=== PATIENT | male | born 1965 | race Caucasian/White ===

== ENCOUNTER 2019-05-12 15:52 | Emergency (ER) | payer BC, SELFPAY ==
[2019-05-12 15:55] VITALS: BP 130/81; PULSE 92; RESP 17; TEMP 37.5; O2SAT 94; BMI 32.2
--- NOTE | 2019-05-12 15:59 | XR_ITS ---
WS: [id number] PROCEDURE: XR chest 2V* [id number] CLINICAL INFORMATION: fever COMPARISON: None. FINDINGS: Heart: Normal cardiac silhouette. Lungs: Moderate chronic emphysematous changes. No acute pulmonary infiltrates. Slight fibrosis right upper lobe. Bones: Normal visualized bony structures. XR/XR chest 2V* [id number] IMPRESSION: Moderate chronic emphysematous changes. No acute chest findings.
--- NOTE | 2019-05-12 16:05 | ECG_ITS ---
Measurements Intervals [place] Rate: 86 P: 64 DC: 142 QRS: 42 QRSD: 102 T: 48 QT: 342 QTc: 411 SINUS RHYTHM POSSIBLE LEFT ATRIAL ENLARGEMENT [-0.1mV P WAVE IN V1/V2] No previous ECG available for comparison Electronically Signed On 05-12-2019 17:37:51 CDT by Cheryl Marie M.D. [id number] f
--- NOTE | 2019-05-12 16:06 | W.ED.SOB ---
HPI - SOB/Dyspnea General: Chief Complaint: Shortness of Breath/Dyspnea Stated Complaint: cough,fever Time Seen by Provider: 05/12/19 15:58 Source: patient Mode of arrival: ambulatory Limitations: no limitations History of Present Illness: HPI Narrative: 53-year-old male who states over the last 2 days has had a cough and fever. Patient states his fevers been up to 100.6 has also has had some chest pain. He states his pain is a sharp pain in the center of his chest and is worse with coughing. He denies any shortness of breath and is well-appearing here. Patient was seen in urgent care before and had a negative fluid was swab for coronavirus. Patient's had no known sick contacts. Patient was sent here for an x-ray of his chest. MD elicited complaint: chest pain Onset (ago): day(s) Associated symptoms: Reports chest pain; Deny abdominal pain, fever(s), nausea or vomiting Review of Systems Const: Denies: fever, chills, body aches or change in appetite Eyes: Denies: blurry vision or eye discomfort ENMT: Denies: throat pain or dental pain Card: Reports: chest pain Resp: Reports: non-productive cough; Denies: shortness of breath GI: Denies: abdominal pain, nausea, vomiting or diarrhea : Denies: painful urination Musc: Denies: neck pain or back pain Skin/Breast: Denies: rash Neuro: Denies: headache Psych: Denies: depression Valeriy/Lymph: Denies: easy bruising All/Imm: Denies: hives PFSH ED PFSH: Social History Smoking and tobacco status: never smoked Physical Exam Const: COMMON NORMALS: no apparent distress, oriented x3 and healthy appearing HENMT: COMMON NORMALS: normocephalic and head/scalp atraumatic HEAD & SCALP: normocephalic and atraumatic Eye: COMMON NORMALS: PERRL and EOMs intact bilaterally PUPIL: Yes PERRL Neck/C-Spine: COMMON NORMALS: full ROM and supple Chest: COMMONS NORMALS: inspection of chest normal and palpation of chest normal Resp: COMMON NORMALS: normal respiratory effort, no retractions, no use of accessory muscles and clear to auscultation bilaterally AUSCULTATION: clear to auscultation bilaterally Cardio: COMMON NORMALS: regular rate, regular rhythm and no murmurs RATE: regular rate RHYTHM: regular rhythm GI: COMMON NORMALS: normal to inspection, nondistended, normoactive bowel sounds, soft to palpation, non-tender and no masses PALPATION: Yes soft Extremity: COMMON NORMALS: normal to inspection and full ROM Neuro: COMMON NORMALS: oriented x3, moves all extremities and no focal motor deficits Psych: COMMON NORMALS: mental status grossly normal, thought process normal and cooperative THOUGHT PROCESS: normal thought process Skin: COMMON NORMALS: no rashes or lesions noted and no wounds GENERAL SKIN EXAM: no rashes or lesions noted Course Vital Signs: Vital signs: Vital Signs Temperature 99.5 F 05/12/19 15:55 Pulse Rate 90 05/12/19 16:52 Respiratory Rate 18 05/12/19 16:52 Blood Pressure 126/64 05/12/19 16:52 Pulse Oximetry 95 05/12/19 16:52 MDM - SOB/Dyspnea MDM Narrative: Medical decision making narrative: Patient presents with cough congestion fever. He had coronavirus testing earlier today at urgent care. Patient's x-ray here shows no pneumonia. Patient's lab work here is normal. I believe his chest pain is likely related to his cough and pleuritic in nature. He has no signs of cardiac cause or pulmonary embolism. He is to follow-up with his primary care doctor in 3 to 4 days return to ER if he has any increased respiratory issues. He is to self quarantine for 2 weeks. Lab Data: Labs: Lab Results 05/12/19 05/12/19 05/12/19 Range/Units 16:43 16:43 16:43 WBC 8.2 (4.0-10.0) 10^3/ uL RBC 5.49 H (4.1-5.3) 10^6/u L Hgb 14.8 (11.7-16.6) g/dL Hct 47.3 (42.0-52.0) % MCV 86.2 (80-94) fL MCH 27.0 L (28.0-34.0) pg MCHC 31.3 (30.0-36.0) g/dL RDW 13.6 (12.1-15.1) % Plt Count 218 (130-400) 10^3/c mm MPV 9.5 (7.4-10.4) fL Neut % (Auto) 85.8 % Lymph % (Auto) 7.0 % [place] % (Auto) 7.0 % Eos % (Auto) 0.0 % Baso % (Auto) 0.1 % Neut # (Auto) 7.0 (1.8-7.7) 10^3/u L Lymph # (Auto) 0.6 L (0.8-4.8) 10^3/u L [place] # (Auto) 0.6 (0.2-0.9) 10^3/u L Eos # (Auto) 0.0 (0.0-0.8) 10^3/u L Baso # (Auto) 0.0 (0.0-0.1) 10^3/u L Nucleated RBC % (a uto) 0 % Nucleated RBCs # 0.0 /100WBC Sodium 137 (136-145) mmol/L Potassium 3.7 (3.5-5.1) mmol/L Chloride 102 (98-107) mmol/L Carbon Dioxide 22 (22-29) mmol/L Anion Gap 16.7 (5-19) BUN 13 (6-20) mg/dL Creatinine 1.0 (0.7-1.2) mg/dL GFR Calculation 78.8 L (90-130) mL/min Glucose 100 (65-115) mg/dL Calculated Osmolal ity 280 L (285-295) mOsm/k g Calcium 9.2 (8.5-10.5) mg/dL Troponin T Baselin e 6 (0-15) ng/mL Imaging Data^: CXR: Attestation: I personally reviewed and interpreted this imaging study as follows: My impression: no acute abnormality EKG Data^: EKG 1: Attestation: I personally reviewed and interpreted this EKG as follows: EKG Interpretation Date: 05/12/19 EKG interpretation time: 16:25 Interpretation: nsr hr [address] or t wave abnormalities qrs 102 qtc 386 Discharge Plan Discharge Patient Disposition: Home, Self-Care Clinical Impression: Upper respiratory infection Qualifiers: URI type: unspecified URI Qualified Code(s): J06.9 - Acute upper respiratory infection, unspecified Condition: Stable Discharge Orders: Discharge Order (Routine); Ordered 05/12/19 Ordered By: Korby Raissa Referrals: Agnes Burgess APN [Family Provider] - 1-3 days Discharge Diet: Advance as tolerated Discharge Activity: Resume usual activity Patient Instructions: Upper Respiratory Infection (ED) Coding Level of Care Code ED [employer] Supervisor for Chg Fwd Exam Comprehensive
[2019-05-12] MEDS: ketorolac 30 mg/mL INJ 15 MG IVP (16:44)
[2019-05-12] MEDS: sodium chloride 0.9% 1,000 ML 999 ML IV (16:45)
[2019-05-12 16:52] VITALS: BP 126/64; PULSE 90; RESP 18; O2SAT 95
[2019-05-12 17:13] LABS: Basophils % 0.1 %; Hematocrit 47.3 % (42.0-52.0); Hemoglobin 14.8 g/dL (11.7-16.6); Lymphocytes # 0.6 10^3/uL (0.8-4.8); Mean Corpuscular HGB Conc 31.3 g/dL (30.0-36.0); Mean Corpuscular Volume 86.2 fL (80-94); Mean Platelet Volume 9.5 fL (7.4-10.4); Monocytes # 0.6 10^3/uL (0.2-0.9); Neutrophils % 85.8 %; Nucleated Red Blood Cells % 0 %; Platelet Count 218 10^3/cmm (130-400); Red Blood Count 5.49 10^6/uL (4.1-5.3); Red Cell Distribution Width 13.6 % (12.1-15.1); White Blood Count 8.2 10^3/uL (4.0-10.0)
[2019-05-12 17:29] LABS: Anion Gap 16.7 (5-19); Blood Urea Nitrogen 13 mg/dL (6-20); Calcium 9.2 mg/dL (8.5-10.5); Carbon Dioxide 22 mmol/L (22-29); Chloride 102 mmol/L (98-107); Glomerular Filtration Rate 78.8 mL/min (90-130); Glucose 100 mg/dL (65-115); Osmolality Calculated 280 mOsm/kg (285-295); Potassium 3.7 mmol/L (3.5-5.1); Sodium 137 mmol/L (136-145)
[2019-05-12 17:31] LABS: Troponin(5th) Baseline 6 ng/mL (0-15)
--- NOTE | 2019-05-12 18:05 | ECG_ITS ---
Measurements Intervals [place] Rate: 83 P: 62 [place]: 141 QRS: 35 QRSD: 109 T: 42 QT: 368 QTc: 433 SINUS RHYTHM POSSIBLE LEFT ATRIAL ENLARGEMENT [-0.1mV P WAVE IN V1/V2] NONSPECIFIC T-WAVE ABNORMALITY Compared to ECG 05/12/2019 16:25:33 T-wave abnormality now present Electronically Signed On 05-13-2019 20:22:45 CDT by Nimo Hess M.D. [id number] f
[2019-05-12 18:24] VITALS: BP 133/85; PULSE 86; RESP 16; TEMP 37.5; O2SAT 96
== END 2019-05-12 18:25 | disposition home or self-care (01) ==
PROVIDERS: Emergency Provider Emergency Medicine; Family Provider Nurse Practitioner
DX: J06.9 Acute upper respiratory infection, unspecified (principal)
CPT/HCPCS: 12345; 71046; 80048; 84484; 85025; 93005; 96360; 96361; 96374; 99283; 99284; J1885; J7030

== ENCOUNTER 2020-03-21 11:17 | Emergency (ER) | payer OTHER, SELFPAY ==
[2020-03-21 11:36] VITALS: BP 148/87; PULSE 69; RESP 18; TEMP 36.3; O2SAT 96; BMI 34.7
[2020-03-21 12:17] VITALS: BP 142/96; PULSE 76; RESP 16; O2SAT 95
[2020-03-21 12:18] LABS: Basophils % 0.2 %; Eosinophils # 0.1 10^3/uL (0.0-0.8); Eosinophils % 0.7 %; Hemoglobin 14.5 g/dL (11.7-16.6); Lymphocytes # 1.6 10^3/uL (0.8-4.8); Lymphocytes % 16.5 %; Mean Corpuscular HGB Conc 30.9 g/dL (30.0-36.0); Mean Corpuscular Hemoglobin 27.2 pg (28.0-34.0); Mean Platelet Volume 9.4 fL (7.4-10.4); Monocytes # 0.8 10^3/uL (0.2-0.9); Monocytes % 8.4 %; Neutrophils # 7.32 10^3/uL (1.8-7.7); Nucleated Red Blood Cells % 0 %; Platelet Count 245 10^3/cmm (130-400); Red Blood Count 5.34 10^6/uL (4.1-5.3); Red Cell Distribution Width 13.2 % (12.1-15.1); White Blood Count 9.9 10^3/uL (4.0-10.0)
--- NOTE | 2020-03-21 12:30 | CT_ITS ---
WS: [id number] CT ABDOMEN PELVIS TECHNIQUE: Contrast-enhanced CT of the abdomen and pelvis with coronal and sagittal reformatted image s. CLINICAL INFORMATION: Lower left quadrant tenderness COMPARISON: None. DLP: 1570.[address] scans at [facility] use at least one of these dose optimization techniques: automat ed exposure control; mA and/or kV adjustment per patient size (includes targeted exams where dose is matched to clinical indication); or iterative reconstruction. FINDINGS:Inflammatory stranding and edema involving the sigmoid colon left lower quadrant consistent with acute diverticulitis. No drainable fluid collections or abscess. In addition, segment of luminal narrowing involving the distal sigmoid colon extending over approximately 2.8 cm. This may be due to spasm but neoplasm not excluded and recommend further evaluation with colonoscopy. Normal liver. Cholecystectomy clips. Normal spleen. Normal GE junction. Lung bases are well aerated. Subcentimeter noncalcified pulmonary nodules in the left lower lobe and right middle lobe. The larges t measuring 5 to 6 mm. Adrenal glands are normal. Normal renal parenchymal enhancement. No hydronephrosis. Right renal cyst measuring 11 mm. Normal pancreas. Normal portal vein and splenic vein. Normal superior mesenteric vei n. Normal caliber abdominal aorta. Fat-containing umbilical hernia. No periaortic or retroperitoneal lymphadenopathy. No pelvic lymphadenopathy. No inguinal lymphadenopa thy. No free fluid in the pelvis. Incidental fat-containing inguinal hernia. Mild disc space narrowing L5-S1. CT/CT abdomen pelvis w con* [id number] IMPRESSION: 1. Thickening of the distal descending left colon and sigmoid colon with surro unding inflammatory stranding and edema consistent with acute diverticulitis. 2. No evidence of drainable abscess or fluid collection. 3. Segment of apparent stricturing involving the distal sigmoid colon extendin g over approximately 2.5 cm may be due to spasm or stricture from prior diverti culitis. Neoplasm not excluded. Recommend follow-up with colonoscopy. 4. Prior cholecystectomy. 5. A few subcentimeter noncalcified pulmonary nodules in the lower lobes. James mmend further evaluation with chest CT. This can be performed on an elective ba sis. Notified Merrill Perdomo MD at 03/21/2020 2:06 PM.
[2020-03-21] MEDS: ketorolac 30 mg/mL INJ 15 MG IVP (12:31)
--- NOTE | 2020-03-21 12:33 | W.ED.ABDPA2 ---
HPI - Abdominal Pain General: Chief Complaint: Abdominal Pain Stated Complaint: Lower Lt ABD pain/Distension Time Seen by Provider: 03/21/20 11:49 History of Present Illness: HPI narrative: The patient is a 54-year-old male with past medical history hypertension who comes to the ER complaining of left lower quadrant pain for the past 2 days. He says he is also been having mild loose stools and possibly diarrhea over that time. He has never had this pain before. He has no other significant medical problems. Denies nausea and vomiting. Denies fevers as well. MD elicited complaint: abdominal pain Onset (ago): day(s) (2) Location: LLQ Severity: moderate Quality: sharp Radiation: none Exacerbating factors: nothing Relieving factors: nothing Associated Symptoms: Reports no associated symptoms; Denies GI cramping and diarrhea Review of Systems General: Reports: 10 or more systems reviewed and unremarkable except in HPI and below Const: Denies: fatigue Eyes: Denies: change in vision, blurry vision or eye redness ENMT: Denies: throat pain, swelling of lips/tongue, ear or mastoid pain or nasal congestion Card: Denies: chest pain, palpitations, irregular heart rhythm, edema, dyspnea on exertion or orthopnea Resp: Denies: dyspnea, productive cough or non-productive cough GI: Reports: abdominal pain; Denies: diarrhea or GI cramping : Denies: flank pain, urinary frequency or urinary urgency Musc: Denies: neck pain, back pain, extremity pain, joint pain, joint redness, limited range of motion or muscle weakness Skin/Breast: Denies: rash, pruritus, erythema, skin pain or skin tenderness Neuro: Denies: headache(s), numbness in extremities, weakness in extremities, sensory changes, difficulty walking, dizziness, confusion or Slurred speech present Psych: Denies: anxiety or depression Endo: Denies: polyuria All/Imm: Denies: urticaria, throat swelling or tongue swelling PFSH ED PFSH: Social History Smoking and tobacco status: never smoked Physical Exam Const: COMMON NORMALS: no acute distress, average body habitus, patient oriented x3, no limitations, healthy appearing, alert and well nourished GENERAL APPEARANCE: cooperative, comfortable, well kempt and well developed ORIENTATION/CONSCIOUSNESS: Yes awake, Yes oriented to person, Yes oriented to place and Yes oriented to time HENMT: COMMON NORMALS: normocephalic, external ears normal and Normal external nose present HEAD & SCALP: normal to inspection and normocephalic NOSE: Normal external nose present EXTERNAL EAR: Yes external ears normal MOUTH: Normal oral and palatal mucosa present THROAT: posterior oropharynx normal Eye: COMMON NORMALS: Equal, round and reactive pupils present and EOMs intact bilaterally GENERAL EYE: appearance normal, both eyes and all related structures PUPIL: Yes Equal, round and reactive pupils present Neck/C-Spine: COMMON NORMALS: full ROM, no lymphadenopathy, no meningeal signs and no JVD GENERAL: Yes normal visual inspection Lymph: LYMPHATIC: no lymphadenopathy noted Chest: COMMONS NORMALS: normal inspection of the chest and normal palpation of entire chest wall Resp: COMMON NORMALS: normal respiratory effort, No retractions, No use of accessory muscles, clear to auscultation bilaterally and percussion normal EFFORT & INSPECTION: Yes able to speak in complete sentences AUSCULTATION: clear to auscultation bilaterally PERCUSSION: percussion normal Cardio: COMMON NORMALS: no JVD, regular rate, regular rhythm, S1 normal heart sound present, S2 normal heart sound present and Peripheral pulses 2+ throughout RATE: regular rate RHYTHM: regular rhythm HEART SOUNDS: S1 normal heart sound present and S2 normal heart sound present PERIPHERAL PULSES: Peripheral pulses 2+ throughout GI: COMMON NORMALS: Normal to inspection, nondistended, normoactive bowel sounds present, Soft to palpation and no masses INSPECTION: Yes normal to inspection PALPATION: Yes Soft to palpation OTHER: Left lower quadrant abdominal tenderness. No rebound tenderness. Normal bowel sounds. Belly soft : COMMON NORMALS: Yes no CVA tenderness BLADDER/KIDNEY EXAM: Yes no CVA tenderness Back/Pelvis: COMMON NORMALS: no CVA tenderness, thoracic and lumbar spine normal to inspection, no thoracic nor lumbar tenderness and thoraco-lumbar ROM normal Extremity: COMMON NORMALS: normal to inspection, full ROM, capillary refill normal, no joint enlargement and no pedal edema GENERAL: Yes normal exam except as noted Neuro: COMMON NORMALS: patient oriented x3, CN's II-XII intact bilaterally, moves all extremities, no focal motor deficits, no sensory deficits noted and gait normal SENSORIUM/ORIENTATION: Yes alert, Yes oriented to person, Yes oriented to place and Yes oriented to time MENINGEAL SIGNS: Yes no meningeal signs Psych: COMMON NORMALS: mental status grossly normal, Normal thought process present, cooperative, normal affect and speech normal APPEARANCE: Yes well kempt ATTITUDE: Yes calm SPEECH: Yes normal speech THOUGHT PROCESS: Normal thought process present Skin: COMMON NORMALS: no rashes or lesions noted GENERAL SKIN EXAM: no rashes or lesions noted Course Vital Signs: Vital signs: Vital Signs Temperature 97.3 F L 03/21/20 11:36 Pulse Rate 70 03/21/20 13:22 Respiratory Rate 16 03/21/20 13:22 Blood Pressure 133/83 03/21/20 13:22 Pulse Oximetry 96 03/21/20 13:22 MDM - Abdominal Pain MDM Narrative: Medical decision making narrative: Patient has CT evidence of uncomplicated diverticulitis. We will start him on Cipro and Flagyl as an outpatient. He also has a small stricture seen in his distal sigmoid colon. Could be scarring from previous diverticulitis versus a cancerous process. Discussed the importance of following up with a GI doctor to get a colonoscopy with him as if this is a cancerous process earlier diagnosis and treatment leads to a much better prognosis. He understands and will follow up. I have placed a case management referral to help him get an appointment with GI doctor and primary care physician. Lab Data: Labs: Lab Results 03/21/20 03/21/20 03/21/20 Range/Units 12:08 12:08 12:08 WBC 9.9 (4.0-10.0) 10^3/ uL RBC 5.34 H (4.1-5.3) 10^6/u L Hgb 14.5 (11.7-16.6) g/dL Hct 47.0 (42.0-52.0) % MCV 88.0 (80-94) fL MCH 27.2 L (28.0-34.0) pg MCHC 30.9 (30.0-36.0) g/dL RDW 13.2 (12.1-15.1) % Plt Count 245 (130-400) 10^3/c mm MPV 9.4 (7.4-10.4) fL Neut % (Auto) 74.0 % Lymph % (Auto) 16.5 % [place] % (Auto) 8.4 % Eos % (Auto) 0.7 % Baso % (Auto) 0.2 % Neut # (Auto) 7.32 (1.8-7.7) 10^3/u L Lymph # (Auto) 1.6 (0.8-4.8) 10^3/u L [place] # (Auto) 0.8 (0.2-0.9) 10^3/u L Eos # (Auto) 0.1 (0.0-0.8) 10^3/u L Baso # (Auto) 0.0 (0.0-0.1) 10^3/u L Nucleated RBC % (a uto) 0 % Nucleated RBCs # 0.0 /100WBC Sodium 138 (136-145) mmol/L Potassium 4.1 (3.5-5.1) mmol/L Chloride 110 H (98-107) mmol/L Carbon Dioxide 21 L (22-29) mmol/L Anion Gap 11.1 (5-19) BUN 15 (6-20) mg/dL Creatinine 0.7 (0.7-1.2) mg/dL GFR Calculation 118.4 (90-130) mL/min Glucose 83 (65-115) mg/dL Calculated Osmolal ity 286 (285-295) mOsm/k g Lactate 0.6 (0.5-2.2) mmol/L Calcium 8.4 L (8.5-10.5) mg/dL Total Bilirubin 0.6 (0.15-1.2) mg/dL AST 16 (0-40) U/L ALT 19 (0-41) U/L Alkaline Phosphata se 71 (40-130) IU/L Total Protein 6.4 L (6.6-8.7) g/dL Albumin 3.5 (3.5-5.2) g/dL Globulin 2.9 (1.3-4.6) g/dL Lipase 15 (13-60) U/L Urine Color (Yellow) Urine Appearance (CLEAR) Urine pH (5-7) Ur Specific Gravit y (1.005-1.030) Urine Protein (Negative) Urine Glucose (UA) (Normal) Urine Ketones (Negative) Urine Blood (Negative) Urine Nitrate (Negative) Urine Bilirubin (Negative) Urine Urobilinogen (Negative) mg/dL Ur Leukocyte Ana Lilia ase (Negative) 03/21/20 Range/Units 13:23 WBC (4.0-10.0) 10^3/ uL RBC (4.1-5.3) 10^6/u L Hgb (11.7-16.6) g/dL Hct (42.0-52.0) % MCV (80-94) fL MCH (28.0-34.0) pg MCHC (30.0-36.0) g/dL RDW (12.1-15.1) % Plt Count (130-400) 10^3/c mm MPV (7.4-10.4) fL Neut % (Auto) % Lymph % (Auto) % [place] % (Auto) % Eos % (Auto) % Baso % (Auto) % Neut # (Auto) (1.8-7.7) 10^3/u L Lymph # (Auto) (0.8-4.8) 10^3/u L [place] # (Auto) (0.2-0.9) 10^3/u L Eos # (Auto) (0.0-0.8) 10^3/u L Baso # (Auto) (0.0-0.1) 10^3/u L Nucleated RBC % (a uto) % Nucleated RBCs # /100WBC Sodium (136-145) mmol/L Potassium (3.5-5.1) mmol/L Chloride (98-107) mmol/L Carbon Dioxide (22-29) mmol/L Anion Gap (5-19) BUN (6-20) mg/dL Creatinine (0.7-1.2) mg/dL GFR Calculation (90-130) mL/min Glucose (65-115) mg/dL Calculated Osmolal ity (285-295) mOsm/k g Lactate (0.5-2.2) mmol/L Calcium (8.5-10.5) mg/dL Total Bilirubin (0.15-1.2) mg/dL AST (0-40) U/L ALT (0-41) U/L Alkaline Phosphata se (40-130) IU/L Total Protein (6.6-8.7) g/dL Albumin (3.5-5.2) g/dL Globulin (1.3-4.6) g/dL Lipase (13-60) U/L Urine Color Yellow (Yellow) Urine Appearance Clear (CLEAR) Urine pH 5 (5-7) Ur Specific Gravit y 1.020 (1.005-1.030) Urine Protein Neg (Negative) Urine Glucose (UA) Norm (Normal) Urine Ketones Negative (Negative) Urine Blood Neg (Negative) Urine Nitrate Negative (Negative) Urine Bilirubin Neg (Negative) Urine Urobilinogen Norm (Negative) mg/dL Ur Leukocyte Ana Lilia ase Negative (Negative) Discharge Plan Discharge Patient Disposition: Home Clinical Impression: Diverticulitis, Colon stricture Condition: Stable Prescriptions: New ciprofloxacin HCl 500 mg tablet 500 mg PO Q12H Qty: 28 RF: 0 Flagyl 500 mg tablet 500 mg PO Q8H 14 Days Qty: 42 RF: 0 No Action lisinopril 5 mg tablet 5 mg PO DAILY@07 RF: 0 Discharge Orders: Discharge ED (Routine); Ordered 03/21/20 Ordered By: Merrill Perdomo Discharge Diet: Advance as tolerated Discharge Activity: Resume usual activity Patient Instructions: Diverticulitis (ED), Opioid Safety Activity Restrictions/Additional Instructions: You have diverticulitis which is an infection of your intestines. Please take the antibiotics as directed and your pain should start to improve in a couple days. Also you have a small stricture in your colon. This is possibly related to previous diverticulitis infections or there is a small risk it could be a cancerous process. Please follow-up with a speech therapy assistant for a colonoscopy. I have placed a case management referral to help you get an appointment with a speech therapy assistant. Return to the ER with worsening symptoms. Please make sure that you follow-up as if there is a undiagnosed cancer there, early diagnosis and treatment of it will lead to a better prognosis. Coding Level of Care Code ED Director Of Officiating for Clarita Fwd Exam Comprehensive
[2020-03-21 12:53] LABS: Alanine Aminotransferase 19 U/L (0-41); Albumin Level 3.5 g/dL (3.5-5.2); Alkaline Phosphatase 71 IU/L (40-130); Anion Gap 11.1 (5-19); Aspartate Amino Transferase 16 U/L (0-40); Blood Urea Nitrogen 15 mg/dL (6-20); Calcium 8.4 mg/dL (8.5-10.5); Carbon Dioxide 21 mmol/L (22-29); Chloride 110 mmol/L (98-107); Globulin 2.9 g/dL (1.3-4.6); Glomerular Filtration Rate 118.4 mL/min (90-130); Glucose 83 mg/dL (65-115); Lactate (Lactic Acid level) 0.6 mmol/L (0.5-2.2); Lipase 15 U/L (13-60); Osmolality Calculated 286 mOsm/kg (285-295); Potassium 4.1 mmol/L (3.5-5.1); Sodium 138 mmol/L (136-145); Total Bilirubin 0.6 mg/dL (0.15-1.2); Total Protein 6.4 g/dL (6.6-8.7)
[2020-03-21 13:22] VITALS: BP 133/83; PULSE 70; RESP 16; O2SAT 96
[2020-03-21 13:26] LABS: Add Urine Microscopic? NO
[2020-03-21 13:30] LABS: Urine Appearance Clear (CLEAR); Urine Color Yellow (Yellow)
[2020-03-21 13:31] LABS: Bilirubin Urine Neg (Negative); Blood Urine Neg (Negative); Glucose Urine UA Norm (Normal); Ketones Urine Negative (Negative); Leukocyte Esterase Urine Negative (Negative); Nitrate Urine Negative (Negative); Protein Urine Neg (Negative); Urobilinogen Urine Norm (Negative); pH Urine 5 (5-7)
--- NOTE | 2020-03-21 13:37 | PC.NURSE ---
Pt returned from CT
[2020-03-21] MEDS: iohexol 300 mg/mL 100 mL Btl IV (13:43)
[2020-03-21] MEDS: metroNIDAZOLE 500 MG Tablet PO (14:20)
[2020-03-21] MEDS: ciprofloxacin 500 mg Tablet PO (14:20)
[2020-03-21 14:21] VITALS: BP 131/86; PULSE 68; RESP 16; O2SAT 97
--- NOTE | 2020-03-22 11:56 | DCPLANNER ---
sanitation manager had message to schedule a follow up appointment for patient with GI physician, for a colonoscopy and for a primary care physician. sanitation manager called the office of Dr. Fatima, spoke with Shannon, gave clinic patients information, and told clinic that patient would like to have Dr. Fatima as his primary care physician. sanitation manager was told that patients information would be printed and reviewed. Clinic will call patient with appointment information.
--- NOTE | 2020-03-27 11:10 | DCPLANNER ---
Patient has a follow up appointment scheduled for Wednesday, April 08, 2020 at 2:[address] Fatima. Clinic will call patient with appointment information.
--- NOTE | 2020-04-25 15:25 | DCPLANNER ---
Patient had a follow up appointment scheduled for 04.08.[address] Fatima - patient did attend appointment.
== END 2020-03-21 14:24 | disposition home or self-care (01) ==
PROVIDERS: Emergency Provider Family Medicine
DX: K57.32 Diverticulitis of large intestine without perforation or abscess without bleeding (principal)
CPT/HCPCS: 12345; 74177; 80053; 81003; 83605; 83690; 85025; 96374; 99283; J1885; Q9967

== ENCOUNTER 2020-07-17 08:42 | Outpatient (CLI) | payer OTHER, SELFPAY ==
--- NOTE | 2020-07-17 09:23 | FL_ITS ---
WS: [id number] Barium Enema TECHNICAL: Double contrast barium enema FLUOROSCOPY TIME: 2.8 minutes CLINICAL INFORMATION: altered bowel function, diverticulitis large intestine COMPARISON: CT abdomen pelvis March 21, 2019 FINDINGS: Normal filling of the sigmoid colon. Previously described area of stricture on the prior CT distends out today. No evidence of high-grade stricture or suspicious filling defect in the sigmoid colon. Sigmoid diverticulosis. Free flow of contrast to the cecum. Normal ileocecal valve. Normal hepatic and splenic flexures. No polypoid filling defects. Normal postevacuation images. No alanis spicious findings. Cholecystectomy clips. FL/FL barium enema w air* [id number] IMPRESSION: 1. No evidence of stricture in the sigmoid colon. 2. Diverticulosis. 3. Normal ileocecal valve. 4. Unremarkable barium enema.
== END 2020-07-17 08:43 | disposition home or self-care (01) ==
PROVIDERS: Visit Provider Internal Medicine
DX: R19.8 Other specified symptoms and signs involving the digestive system and abdomen (principal); K57.32 Diverticulitis of large intestine without perforation or abscess without bleeding; K57.90 Diverticulosis of intestine, part unspecified, without perforation or abscess without bleeding
CPT/HCPCS: 74280

== ENCOUNTER → 2020-08-24 15:10 | Outpatient (BNVA) | payer OTHER, SELFPAY | PROVIDERS: Visit Provider Emergency Medicine | DX: Z20.822 Contact with and (suspected) exposure to COVID-19 (principal) | CPT/HCPCS: 87635 ==

== ENCOUNTER 2020-08-26 15:05 | Emergency (ER) | payer OTHER, SELFPAY ==
[2020-08-26 15:38] VITALS: BP 125/79; PULSE 82; RESP 18; TEMP 37.7; O2SAT 96; BMI 33.5
[2020-08-26 18:06] LABS: Basophils % 0.1 %; Eosinophils % 0.3 %; Hemoglobin 14.5 g/dL (11.7-16.6); Lymphocytes # 1.1 10^3/uL (0.8-4.8); Lymphocytes % 15.6 %; Mean Corpuscular HGB Conc 31.5 g/dL (30.0-36.0); Mean Corpuscular Hemoglobin 27.5 pg (28.0-34.0); Mean Corpuscular Volume 87.3 fL (80-94); Mean Platelet Volume 9.9 fL (7.4-10.4); Monocytes # 0.6 10^3/uL (0.2-0.9); Monocytes % 8.2 %; Neutrophils # 5.07 10^3/uL (1.8-7.7); Neutrophils % 75.7 %; Nucleated Red Blood Cells % 0 %; Platelet Count 212 10^3/cmm (130-400); Red Blood Count 5.27 10^6/uL (4.1-5.3); Red Cell Distribution Width 13.4 % (12.1-15.1); White Blood Count 6.7 10^3/uL (4.0-10.0)
[2020-08-26 18:29] LABS: Alanine Aminotransferase 26 U/L (0-41); Albumin Level 3.6 g/dL (3.5-5.2); Alkaline Phosphatase 55 IU/L (40-130); Anion Gap 14.1 (5-19); Aspartate Amino Transferase 20 U/L (0-40); Blood Urea Nitrogen 14 mg/dL (6-20); Calcium 8.4 mg/dL (8.5-10.5); Carbon Dioxide 27 mmol/L (22-29); Chloride 99 mmol/L (98-107); Globulin 3.1 g/dL (1.3-4.6); Glomerular Filtration Rate 88.3 mL/min (90-130); Glucose 96 mg/dL (65-115); Lipase 19 U/L (13-60); Osmolality Calculated 282 mOsm/kg (285-295); Potassium 4.1 mmol/L (3.5-5.1); Sodium 136 mmol/L (136-145); Total Bilirubin 0.4 mg/dL (0.15-1.2); Total Protein 6.7 g/dL (6.6-8.7)
--- NOTE | 2020-08-26 23:03 | ED_ITS ---
HPI - Abdominal Pain General: Chief Complaint: Abdominal Pain Stated Complaint: LOWER ABD&BACK PAIN/HX OF DIVERTICULITIS Time Seen by Provider: 08/26/20 23:03 History of Present Illness: HPI narrative: Patient comes in today with complaints of illness since Wednesday. Patient felt that he was having some diarrhea and fever and thought he may be having an exacerbation of his diverticulitis. Patient also reports that last week he was exposed to COVID-19 when his became ill. Patient appears mildly unwell but not toxic. Associated Symptoms: Reports diarrhea Review of Systems General: Reports: 10 or more systems reviewed and unremarkable except in HPI and below Resp: Reports: non-productive cough GI: Reports: abdominal pain and diarrhea PFSH ED PFSH: Medical History Diverticulitis large intestine Family History Grandfather Cancer Heart disease Grandmother Cancer Social History Smoking and tobacco status: never smoked Alcohol intake: never Marital status: Number of children: 2 service: No History of recent travel: No Current gender identity: Male Physical Exam Const: COMMON NORMALS: no acute distress and patient oriented x3 GENERAL APPEARANCE: cooperative HENMT: COMMON NORMALS: normocephalic, TM's normal bilaterally and Normal external nose present HEAD & SCALP: normal to inspection and normocephalic NOSE: Normal external nose present TYMPANIC MEMBRANE: TM's normal bilaterally MOUTH: Normal oral and palatal mucosa present THROAT: posterior oropharynx normal Eye: GENERAL EYE: appearance normal, both eyes and all related structures Neck/C-Spine: COMMON NORMALS: full ROM Lymph: LYMPHATIC: no lymphadenopathy noted Chest: COMMONS NORMALS: normal inspection of the chest Resp: COMMON NORMALS: normal respiratory effort EFFORT & INSPECTION: Yes able to speak in complete sentences AUSCULTATION: diminished lung sounds Cardio: COMMON NORMALS: regular rate and regular rhythm RATE: regular rate RHYTHM: regular rhythm GI: COMMON NORMALS: Soft to palpation and non-tender AUSCULTATION: Yes normoactive bowel sounds PALPATION: Yes Soft to palpation : COMMON NORMALS: Yes no CVA tenderness BLADDER/KIDNEY EXAM: Yes no CVA tenderness Back/Pelvis: COMMON NORMALS: no CVA tenderness and thoracic and lumbar spine normal to inspection Extremity: COMMON NORMALS: normal to inspection Neuro: COMMON NORMALS: patient oriented x3 and moves all extremities Psych: COMMON NORMALS: mental status grossly normal and cooperative Skin: COMMON NORMALS: no rashes or lesions noted GENERAL SKIN EXAM: no rashes or lesions noted Course Vital Signs: Vital signs: Vital Signs Temperature 99.8 F H 08/26/20 15:38 Pulse Rate 82 08/26/20 15:38 Respiratory Rate 18 08/26/20 15:38 Blood Pressure 125/79 08/26/20 15:38 Pulse Oximetry 96 08/26/20 15:38 MDM - Abdominal Pain MDM Narrative: Medical decision making narrative: Patient comes in with complaints of abdominal pain and fever. Patient felt that he may be having exacerbation of his diverticulosis. On exam respirations were even lungs were decreased in the bases. Vital signs were normal except for a fever of 99.8. No acute distress was noted. Differential diagnosis includes not limited to gastroenteritis, viral syndrome, diverticulitis, perforation of the bowel. CT scan noted some bilateral patchy pneumonia with no other significant abnormalities. CBC and CMP were unremarkable. Urinalysis was unremarkable. In further discussion with the patient was found out that he was exposed to COVID- 19 last week by his spouse. With the sign of bilateral lower pneumonia I suspect patient probably has COVID-19 pneumonia. Patient already is on antibiotics doxycycline 100 mg twice a day for a lower respiratory infection he was started on on Wednesday. Patient continues to wait for COVID-19 PCR test that was sent out on Wednesday. Patient also has prednisone and albuterol ordered. Patient will continue with his medications and follow-up with primary care for further instruction or return to the ER for worsening symptoms. Patient was provided with her pulse oximetry. Lab Data: Labs: Lab Results 08/26/20 08/26/20 08/27/20 Range/Units 17:49 17:49 00:57 WBC 6.7 (4.0-10.0) 10^3/ uL RBC 5.27 (4.1-5.3) 10^6/u L Hgb 14.5 (11.7-16.6) g/dL Hct 46.0 (42.0-52.0) % MCV 87.3 (80-94) fL MCH 27.5 L (28.0-34.0) pg MCHC 31.5 (30.0-36.0) g/dL RDW 13.4 (12.1-15.1) % Plt Count 212 (130-400) 10^3/c mm MPV 9.9 (7.4-10.4) fL Neut % (Auto) 75.7 % Lymph % (Auto) 15.6 % [place] % (Auto) 8.2 % Eos % (Auto) 0.3 % Baso % (Auto) 0.1 % Neut # (Auto) 5.07 (1.8-7.7) 10^3/u L Lymph # (Auto) 1.1 (0.8-4.8) 10^3/u L [place] # (Auto) 0.6 (0.2-0.9) 10^3/u L Eos # (Auto) 0.0 (0.0-0.8) 10^3/u L Baso # (Auto) 0.0 (0.0-0.1) 10^3/u L Nucleated RBC % (a uto) 0 % Nucleated RBCs # 0.0 /100WBC Sodium 136 (136-145) mmol/L Potassium 4.1 (3.5-5.1) mmol/L Chloride 99 (98-107) mmol/L Carbon Dioxide 27 (22-29) mmol/L Anion Gap 14.1 (5-19) BUN 14 (6-20) mg/dL Creatinine 0.9 (0.7-1.2) mg/dL GFR Calculation 88.3 L (90-130) mL/min Glucose 96 (65-115) mg/dL Calculated Osmolal ity 282 L (285-295) mOsm/k g Calcium 8.4 L (8.5-10.5) mg/dL Total Bilirubin 0.4 (0.15-1.2) mg/dL AST 20 (0-40) U/L ALT 26 (0-41) U/L Alkaline Phosphata se 55 (40-130) IU/L Total Protein 6.7 (6.6-8.7) g/dL Albumin 3.6 (3.5-5.2) g/dL Globulin 3.1 (1.3-4.6) g/dL Lipase 19 (13-60) U/L Urine Color Yellow (Yellow) Urine Appearance Clear (CLEAR) Urine pH 5 (5-7) Ur Specific Gravit y 1.015 (1.005-1.030) Urine Protein Trace (Negative) Urine Glucose (UA) Norm (Normal) Urine Ketones 2+ H (Negative) Urine Blood Neg (Negative) Urine Nitrate Negative (Negative) Urine Bilirubin 1+ H (Negative) Urine Urobilinogen 1 H (Negative) mg/dL Ur Leukocyte Ana Lilia ase Negative (Negative) Urine RBC 0-4 H (0-2) /hpf Urine WBC 0-4 H (0-5) /hpf Ur Squamous Epith Cells 0-4 H (0-5) /hpf Amorphous Sediment Not Reportable Urine Bacteria Trace (NONE) /hpf Urine Mucus 2+ /hpf Discharge Plan Discharge Patient Disposition: Home Clinical Impression: Pneumonia due to COVID-19 virus Condition: Stable Prescriptions: No Action doxycycline hyclate 100 mg capsule 100 mg PO BID 7 Days Qty: 14 RF: 0 prednisone 20 mg tablet 40 mg PO DAILY 5 Days Qty: 10 RF: 0 albuterol sulfate [Ventolin HFA] 90 mcg/actuation HFA aerosol inhaler 2 puff inhalation QID PRN (Reason: shortness of breath or wheezing) Qty: 6.7 RF: 0 lisinopril 5 mg tablet 5 mg PO DAILY@07 RF: 0 Discharge Orders: Discharge ED (Routine); Ordered 08/27/20 Ordered By: Augustine Archuleta Referrals: Agnes Burgess APN [Primary Care Provider] - Discharge Diet: Usual diet Discharge Activity: Increase activity as tolerated Patient Instructions: Viral Pneumonia (ED), Opioid Safety Activity Restrictions/Additional Instructions: Continue with medications as prescribed from urgent care. Use albuterol inhaler 2 puffs every 4 hours as needed for cough, shortness of breath, or wheezing. Drink plenty of water and use acetaminophen and ibuprofen for body aches and fever. Continue with prednisone as prescribed. Continue with doxycycline to cover for secondary bacterial infection although most likely with pneumonia is caused from a virus. Monitor pulse oxygen with a oximetry finger probe as needed for shortness of breath. If oxygen saturation is below 90% and stays below 90% even after getting up and moving around and taking a few deep breaths it is important to come into the emergency room for further evaluation and treatment. Make sure to wear a mask around other individuals and try to sep arate yourself from other individuals that are well. Coding Level of Care Code ED Shovel Operator for Clarita Foley
--- NOTE | 2020-08-26 23:03 | CTR_ITS ---
PROCEDURE INFORMATION: Exam: CT Abdomen And Pelvis With Contrast Exam date and time: 08/26/2020 11:03 PM Age: 55 years old Clinical indication: Abdominal pain; Localized; Lower; Prior surgery; Surgery date: 6+ months; Surgery type: Gb; Additional info: Abd pain, HX of diverticulitis TECHNIQUE: Imaging protocol: Computed tomography of the abdomen and pelvis with contrast. Radiation optimization: All CT scans at this facility use at least one of these dose optimization techniques: automated exposure control; mA and/or kV adjustment per patient size (includes targeted exams where dose is matched to clinical indication); or iterative reconstruction. Contrast material: OMNI 300; Contrast volume: 95 ml; Contrast route: INTRAVENOUS (IV); COMPARISON: CT abdomen pelvis w con* [id number] 03/21/2020 1:45 PM RADIATION DOSE METRICS: Total DLP (mGy-cm): 1859.59 FINDINGS: Lungs: Continued 6 mm noncalcified nodule in the left lower lobe and 5 mm noncalcified nodule in the right middle lobe. Interval appearance of small foci of patchy haziness in both lower lobes and the right middle lobe. Liver: Liver still unremarkable. Gallbladder and bile ducts: Cholecystectomy again evident. Still no biliary ductal dilatation. Pancreas: Still no pancreatic disease. Spleen: Still no splenomegaly. Adrenal glands: Still no adrenal mass. Kidneys and ureters: Continued approximately 13 mm ovoid focus of decreased density in the right lateral renal cortex and 2 smaller foci of low density in the right upper renal cortex. A few very small foci of decreased density in the left renal cortex slightly more apparent than before. Still no hydronephrosis. Stomach and bowel: Adhesions still suspected. No bowel obstruction. Interval disappearance of the distal descending diverticulitis as well as the mild dilatation of some left small bowel loops. Interval worsening of the elongation of the sigmoid colon, with the sigmoid flexure now present in the left middle to upper abdomen. Appendix: Still no appendicitis. Intraperitoneal space: Still no free air. Vasculature: Replaced right hepatic artery again evident. Continued slight atherosclerosis. Still no aortic aneurysm. Lymph nodes: No interval enlarged nodes. Urinary bladder: Unremarkable as visualized. Reproductive: Unremarkable as visualized. Bones/joints: Old compression fractures again evident. Continued degeneration of several discs, with the greatest disease at L5-S1. Prominent spurring along a left focal disc protrusion at L5-S1 still present causing displacement of the left S1 nerve root; continued at least moderate to marked left foraminal stenosis at this level as well. Soft tissues: Continued small right inguinal hernia containing fat. Developing or minimal left inguinal hernia containing fat still suspected. Continued small periumbilical hernia containing fat. CT/CT abdomen pelvis w con* [id number] IMPRESSION: 1. No acute abdominal findings. Interval disappearance of the descending diverticulitis as well as the mild left small-bowel dilatation. Adhesions still suspected. 2. Continued foci of decreased density in the renal cortices, too small to characterize. Other abdominal findings detailed above. 3. Interval appearance of small foci of patchy haziness in both lung bases raising the possibility of early pneumonia. 4. Continued 6 mm and 5 mm noncalcified nodules in the lower lungs. For patients at low risk (minimal or absent history of smoking and of other known risk factors), recommend CT Chest at 3-6 months, then consider CT Chest at 18-24 months. For patients at high risk (history of smoking or of other known risk factors), recommend CT Chest at 3-6 months, then CT Chest at 18-24 months. (Reference: Arely) COMMENTS: Consistent with the [employer] [place] [employer]'s Incidental Findings Committee white paper (J Am Bridget Radiol 2018): Any incidental renal lesion less than 1 cm or classified as too small to characterize, or any incidental cystic renal lesion characterized as simple-appearing, is likely benign. No follow-up imaging is recommended for these lesions per consensus recommendations based on imaging criteria. REFERENCES: Arely Manriquez, et al. Guidelines for Management of Incidental Pulmonary Nodules Detected on CT Images: From the Fleischner Society 2017. Radiology. 2017;284(1):228-243. Radiation Dose CTDIVOL = (mGy): DLP = 1859.59 (mGy-cm)
[2020-08-26] MEDS: iohexol 300 mg/mL 100 mL Btl IV (23:33)
[2020-08-27 01:16] LABS: Add Urine Culture? No; Add Urine Microscopic? YES; Bacteria Urine TRACE /hpf; Bilirubin Urine 1+ (Negative); Blood Urine Neg (Negative); Glucose Urine UA Norm (Normal); Ketones Urine 2+ (Negative); Leukocyte Esterase Urine Negative (Negative); Mucus Urine 2+ /hpf; Nitrate Urine Negative (Negative); Protein Urine Trace (Negative); RBC Urine 0-4 /hpf (0-2); Specific Gravity, Urine 1.015 (1.005-1.030); Squamous Epithelial Cell Urine 0-4 /hpf (0-5); Urine Appearance Clear (CLEAR); Urine Color Yellow (Yellow); Urobilinogen Urine 1 mg/dL (Negative); WBC Urine 0-4 /hpf (0-5); pH Urine 5 (5-7)
[2020-08-27 01:42] VITALS: BP 132/84; PULSE 98; RESP 19; O2SAT 96
[2020-08-27] MEDS: dexamethasone 4 mg Tablet 6 MG PO (01:53)
[2020-08-27] MEDS: azithromycin 250 mg Tablet 500 MG PO (01:53)
[2020-08-27 01:56] VITALS: BP 132/84; PULSE 98; RESP 19; O2SAT 96
== END 2020-08-27 01:58 | disposition home or self-care (01) ==
PROVIDERS: Family Medicine; Emergency Provider Nurse Practitioner Family; PCP Nurse Practitioner
DX: U07.1 COVID-19 (principal); J12.82 Pneumonia due to coronavirus disease 2019
CPT/HCPCS: 36415; 74177; 80053; 81001; 83690; 85025; 99283; J8540; Q0144; Q9967

== ENCOUNTER 2021-04-07 21:32 | Emergency (ER) | payer OTHER, SELFPAY ==
[2021-04-07 21:38] VITALS: BP 174/110; PULSE 91; RESP 16; TEMP 36.6; O2SAT 98; BMI 34.2
--- NOTE | 2021-04-07 21:45 | XRR_ITS ---
PROCEDURE INFORMATION: Exam: XR Chest Exam date and time: 04/07/2021 9:45 PM Age: 55 years old Clinical indication: Pain; Angina pectoris; Additional info: Cp since 4:30pm TECHNIQUE: Imaging protocol: XR of the chest. Views: 1 view. COMPARISON: CR XR chest 2V* [id number] 05/12/2019 4:10 PM FINDINGS: Lungs: Unremarkable. No consolidation. Pleural spaces: Unremarkable. No pleural effusion. No pneumothorax. Heart/Mediastinum: Unremarkable. No cardiomegaly. Bones/joints: Unremarkable. XR/XR chest 1V portable [id number] IMPRESSION: No acute findings.
--- NOTE | 2021-04-07 21:45 | ECG_ITS ---
[facility] Test Date: 2021-04-07 Pat Name: Tyrone House Department: Room: Gender: Male Brand Mgr: : [id number] Requested By: Sanjana Haji Order Number: [id number] Mason MD: Cheryl Marie M.D. Measurements Intervals Weaver Rate: 84 P: 65 AK: 153 QRS: 45 QRSD: 102 T: 53 QT: 346 QTc: 411 Interpretive Statements SINUS RHYTHM WITH OCCASIONAL VENTRICULAR PREMATURE COMPLEXES Compared to ECG 05/12/2019 18:01:02 Ventricular premature complex(es) now present T-wave abnormality no longer present Electronically Signed On 04-09-2021 5:41:18 CHART COMPUTER by Cheryl Marie M.D. [id number] f
--- NOTE | 2021-04-07 21:45 | PC.NURSE ---
patient received with c/o pain to right inner arm from axilla to elbow, states started at 1630, denies trauma or injury. states palpation does not change pain. PMS intact.
--- NOTE | 2021-04-07 21:45 | W.ED.GENADLT ---
HPI - General Adult General: Chief complaint: General Medical Stated complaint: Pain Under arm to end of Arm Time Seen by Provider: 04/07/21 21:36 Source: patient Mode of arrival: ambulatory Limitations: no limitations History of Present Illness: 55-year-old male who states has been having right arm pain throughout the day. He states the pain is under the right armpit and feels like an achy pain that has had all day at work. He denies any chest pain denies any shortness of breath but states he was concerned as he does have a strong family history of heart disease on make sure his heart was okay. Denies any worsening improving factors. Associated symptoms: Reports chest pain; Deny dyspnea, headache(s), nausea, rash or vomiting Review of Systems Const: Denies: fever(s), chills, body aches or change in appetite Eyes: Denies: blurry vision or eye discomfort ENMT: Denies: throat pain or dental pain Card: Reports: chest pain Resp: Denies: dyspnea GI: Denies: abdominal pain, nausea, vomiting or diarrhea : Denies: dysuria Musc: Denies: neck pain or back pain Skin/Breast: Denies: rash Neuro: Denies: headache(s) Psych: Denies: depression Valeriy/Lymph: Denies: easy bruising All/Imm: Denies: urticaria PFSH ED PFSH: Medical History Diverticulitis large intestine Family History Grandfather Cancer Heart disease Grandmother Cancer Social History Smoking and tobacco status: never smoked Alcohol intake: never Marital status: Number of children: 2 service: No History of recent travel: No Current gender identity: Male Physical Exam Const: COMMON NORMALS: no acute distress, patient oriented x3 and healthy appearing HENMT: COMMON NORMALS: normocephalic and atraumatic HEAD & SCALP: normocephalic and atraumatic Eye: COMMON NORMALS: Equal, round and reactive pupils present and EOMs intact bilaterally PUPIL: Yes Equal, round and reactive pupils present Neck/C-Spine: COMMON NORMALS: full ROM and supple Chest: COMMONS NORMALS: normal inspection of the chest and normal palpation of entire chest wall Resp: COMMON NORMALS: normal respiratory effort, No retractions, No use of accessory muscles and clear to auscultation bilaterally AUSCULTATION: clear to auscultation bilaterally Cardio: COMMON NORMALS: regular rate, regular rhythm and No murmurs present (Cardio) RATE: regular rate RHYTHM: regular rhythm GI: COMMON NORMALS: Normal to inspection, nondistended, normoactive bowel sounds present, Soft to palpation, non-tender and no masses PALPATION: Yes Soft to palpation Extremity: COMMON NORMALS: normal to inspection and full ROM Neuro: COMMON NORMALS: patient oriented x3, moves all extremities and no focal motor deficits Psych: COMMON NORMALS: mental status grossly normal, Normal thought process present and cooperative THOUGHT PROCESS: Normal thought process present Skin: COMMON NORMALS: no rashes or lesions noted and no wounds GENERAL SKIN EXAM: no rashes or lesions noted Course Vital Signs: Vital signs: Vital Signs Temperature 97.9 F 04/07/21 21:38 Pulse Rate 91 04/07/21 21:38 Respiratory Rate 16 04/07/21 21:38 Blood Pressure 174/110 04/07/21 21:38 Pulse Oximetry 98 04/07/21 21:38 [facility] - General Adult Medical Decision Making Patient presents with arm pain likely muscular in nature exam and arms benign no signs of cellulitis no signs of DVT distal pulses are intact he was concerned about cardiac in origin troponin EKG here are normal no signs of acute coronary syndrome or pulmonary embolism he is stable for discharge is to follow-up with PCP and return if worsening. Lab Data : 04/07/21 21:55 04/07/21 21:55 Radiology Impressions Chest X-Ray 04/07/21 21:45 IMPRESSION: No acute findings. Laboratory Results WBC 11.9 10^3/uL (4.0-10.0) H 04/07/21 21:55 RBC 5.43 10^6/uL (4.1-5.3) H 04/07/21 21:55 Hgb 14.7 g/dL (11.7-16.6) 04/07/21 21:55 Hct 46.8 % (42.0-52.0) 04/07/21 21:55 MCV 86.2 fl (80-94) 04/07/21 21:55 MCH 27.1 pg (28.0-34.0) L 04/07/21 21:55 MCHC 31.4 g/dL (30.0-36.0) 04/07/21 21:55 RDW 13.2 % (12.1-15.1) 04/07/21 21:55 Plt Count 296 10^3/cmm (130-400) 04/07/21 21:55 MPV 9.9 fL (7.4-10.4) 04/07/21 21:55 Neut % (Auto) 73.4 % 04/07/21 21:55 Lymph % (Auto) 15.2 % 04/07/21 21:55 [place] % (Auto) 8.5 % 04/07/21 21:55 Eos % (Auto) 2.4 % 04/07/21 21:55 Baso % (Auto) 0.3 % 04/07/21 21:55 Neut # (Auto) 8.76 10^3/uL (1.8-7.7) H 04/07/21 21:55 Lymph # (Auto) 1.8 10^3/uL (0.8-4.8) 04/07/21 21:55 [place] # (Auto) 1.0 10^3/uL (0.2-0.9) H 04/07/21 21:55 Eos # (Auto) 0.3 10^3/uL (0.0-0.8) 04/07/21 21:55 Baso # (Auto) 0.0 10^3/uL (0.0-0.1) 04/07/21 21:55 Nucleated RBC % (auto) 0 % 04/07/21 21:55 Nucleated RBCs # 0.0 /100WBC 04/07/21 21:55 Sodium 140 mmol/L (136-145) 04/07/21 21:55 Potassium 4.3 mmol/L (3.5-5.1) 04/07/21 21:55 Chloride 105 mmol/L (98-107) 04/07/21 21:55 Carbon Dioxide 25 mmol/L (22-29) 04/07/21 21:55 Anion Gap 14.3 (5-19) 04/07/21 21:55 BUN 21 mg/dL (6-20) H 04/07/21 21:55 Creatinine 1.0 mg/dL (0.7-1.2) 04/07/21 21:55 GFR Calculation 78.2 mL/min (90-130) L 04/07/21 21:55 Glucose 94 mg/dL (65-115) 04/07/21 21:55 Calculated Osmolality 293 mOsm/kg (285-295) 04/07/21 21:55 Calcium 9.9 mg/dL (8.5-10.5) 04/07/21 21:55 Total Bilirubin 0.2 mg/dL (0.15-1.2) 04/07/21 21:55 AST 23 U/L (0-40) 04/07/21 21:55 ALT 35 U/L (0-41) 04/07/21 21:55 Alkaline Phosphatase 84 IU/L (40-130) 04/07/21 21:55 Troponin T Baseline 11 ng/L (0-15) 04/07/21 21:55 Total Protein 7.0 g/dL (6.6-8.7) 04/07/21 21:55 Albumin 4.4 g/dL (3.5-5.2) 04/07/21 21:55 Globulin 2.6 g/dL (1.3-4.6) 04/07/21 21:55 EKG Data EKG 1: I personally reviewed and interpreted this EKG as follows: EKG interpretation date: 04/07/21 EKG interpretation time: 21:50 Interpretation: nsr hr [address] or t wave abnormalities qrs 102 qtc 388 Computer generated interpretation: Chest X-Ray 04/07/21 21:45 IMPRESSION: No acute findings. Discharge Plan Discharge Patient Disposition: Home Clinical Impression: Arm pain, right Condition: Stable Prescriptions: No Action albuterol sulfate [Ventolin HFA] 90 mcg/actuation HFA aerosol inhaler 2 puff inhalation QID PRN (Reason: shortness of breath or wheezing) Qty: 6.7 0RF lisinopril 5 mg tablet 5 mg PO DAILY@07 0RF dexamethasone 6 mg tablet 6 mg PO DAILY Qty: 5 0RF Discharge Orders: Discharge ED (Routine); Ordered 04/07/21 Ordered By: Sanjana Haji Referrals: Agnes Burgess WHITTLING ROOM OPERATOR [Primary Care Provider] - 1-3 days Discharge Diet: Advance as tolerated Discharge Activity: Resume usual activity Patient Instructions: Arm Pain (ED) Coding Level of Care Code ED Supervisor Powder [employer] Canning for Clarita Fwd Exam Comprehensive
[2021-04-07 22:00] LABS: Basophils % 0.3 %; Eosinophils # 0.3 10^3/uL (0.0-0.8); Eosinophils % 2.4 %; Hematocrit 46.8 % (42.0-52.0); Hemoglobin 14.7 g/dL (11.7-16.6); Lymphocytes # 1.8 10^3/uL (0.8-4.8); Lymphocytes % 15.2 %; Mean Corpuscular HGB Conc 31.4 g/dL (30.0-36.0); Mean Corpuscular Hemoglobin 27.1 pg (28.0-34.0); Mean Corpuscular Volume 86.2 fl (80-94); Mean Platelet Volume 9.9 fL (7.4-10.4); Monocytes % 8.5 %; Neutrophils # 8.76 10^3/uL (1.8-7.7); Neutrophils % 73.4 %; Nucleated Red Blood Cells % 0 %; Platelet Count 296 10^3/cmm (130-400); Red Blood Count 5.43 10^6/uL (4.1-5.3); Red Cell Distribution Width 13.2 % (12.1-15.1); White Blood Count 11.9 10^3/uL (4.0-10.0)
[2021-04-07 22:16] LABS: Alanine Aminotransferase 35 U/L (0-41); Albumin Level 4.4 g/dL (3.5-5.2); Alkaline Phosphatase 84 IU/L (40-130); Anion Gap 14.3 (5-19); Aspartate Amino Transferase 23 U/L (0-40); Blood Urea Nitrogen 21 mg/dL (6-20); Calcium 9.9 mg/dL (8.5-10.5); Carbon Dioxide 25 mmol/L (22-29); Chloride 105 mmol/L (98-107); Globulin 2.6 g/dL (1.3-4.6); Glomerular Filtration Rate 78.2 mL/min (90-130); Glucose 94 mg/dL (65-115); Osmolality Calculated 293 mOsm/kg (285-295); Potassium 4.3 mmol/L (3.5-5.1); Sodium 140 mmol/L (136-145); Total Bilirubin 0.2 mg/dL (0.15-1.2)
[2021-04-07 22:29] LABS: Troponin(5th) Baseline 11 ng/L (0-15)
[2021-04-07 22:56] VITALS: BP 136/91; PULSE 81; RESP 16; O2SAT 95
== END 2021-04-07 22:57 | disposition home or self-care (01) ==
PROVIDERS: Emergency Provider Emergency Medicine; PCP Nurse Practitioner
DX: M79.601 Pain in right arm (principal)
CPT/HCPCS: 71045; 80053; 84484; 85025; 93005; 99283

== ENCOUNTER 2022-06-16 13:23 | Outpatient (CLI) | payer BC, SELFPAY ==
--- NOTE | 2022-06-16 13:00 | CT_ITS ---
WS: [id number] CT ABDOMEN AND PELVIS NONCONTRAST HISTORY: R10.31 - Right lower quadrant pain TECHNIQUE: Imaging performed through the abdomen and pelvis. Coronal and sagittal reformats are submi tted. All CT scans at [facility] use at least one of these dose optimization techniques: auto mated exposure control; mA and/or kV adjustment per patient size (includes targeted exams where dose is matched to clinical indication); or iterative reconstruction. DLP: 776.61 mGy.cm COMPARISON: 08/26/2020 Lower thorax: Long-term stability subcentimeter LEFT lower lobe pulmonary nodules. Normal size heart. No hiatal hernia. Liver: Normal size liver. No mass or bile duct dilatation. Gallbladder: Prior cholecystectomy. Pancreas: Normal size and attenuation. Normal pancreatic duct. No pancreatitis or mass. Spleen: Normal. Adrenal glands: Normal. No mass. Right kidney: Normal size kidney with no mass or hydronephrosis. Left kidney: Normal size kidney with no mass or hydronephrosis. Aorta: Normal abdominal aorta, no aneurysm or atherosclerosis. No free fluid, intraperitoneal air or significant lymphadenopathy. GI tract: Stomach is not distended. No small bowel obstruction. Normal appendix. No colon obstruction . Moderate diverticular burden throughout the colon. No evidence for acute diverticulitis. Abdominal wall: Small umbilical hernia contains fat only. Pelvis: No free fluid or adenopathy. Normal urinary bladder. Patent inguinal canals containing fat on ly. No adenopathy. Osseous structures: Bilateral foraminal narrowing at L5-S1 due to osteophytes. No destructive bone le memo. CT/CT abdomen pelvis wo con [id number] IMPRESSION: 1. No acute abdominal or pelvic abnormalities. 2. Normal appendix. 3. Patent bilateral inguinal canals containing fat only. 4. Moderate distal colonic diverticular burden without acute diverticulitis. 5. Prior cholecystectomy.
== END 2022-06-16 13:24 | disposition home or self-care (01) ==
LOC: RAD 13:24
PROVIDERS: PCP Nurse Practitioner; Visit Provider Nurse Practitioner Family
DX: R10.31 Right lower quadrant pain (principal); K57.30 Diverticulosis of large intestine without perforation or abscess without bleeding; Z90.49 Acquired absence of other specified parts of digestive tract
CPT/HCPCS: 74176

== ENCOUNTER → 2022-07-28 10:43 | Outpatient (BNVA) | payer BC, SELFPAY | PROVIDERS: PCP Nurse Practitioner; Visit Provider Physician Assistant | DX: M54.50 Low back pain, unspecified (principal) | CPT/HCPCS: 72110 ==